=== PATIENT | female | born 1990 | race Caucasian/White ===

== ENCOUNTER 2017-10-11 11:00 | Emergency (ER) | payer MEDICAID ==
[~2017-10-11] VITALS: Ht 172.7 cm; Wt 59.9 kg
[~2017-10-11 11:00] MED LIST: ACET-6134 PO; FERR-212 PO; PREN1SGL44 PO
[2017-10-11 11:11] VITALS: BP 95/66
--- NOTE | 2017-10-11 11:20 | NUR ---
Patient to bed 11.
[2017-10-11] MEDS ORDERED: NACL 0.9% 1,000 ML IV ONE (11:35)
[2017-10-11] MEDS ORDERED: ONDANSETRON 4 MG/2 ML VIAL IVP ONE (11:35)
--- NOTE | 2017-10-11 12:00 | NUR ---
27F BIB WITH C/O 8/10 LEE WITH SORE THROAT AND BODY ACHES; PT STS SHE IS 13 WKS ; LMP 06/27/17; ; PT DENIES ANY ABD CRAMPING OR VAG BLEEDING AT THIS TIME DENIES N/V/D; SKIN IS PINK/WARM/DRY; AAOX4 WITH EVEN AND STEADY GAIT; LUNGS CLEAR BL; HR EVEN AND REGULAR; PT DENIES ANY FEVER, CP, SOB, OR COUGH AT THIS TIME; PATIENT STATES PAIN OF 0/10 AT THIS TIME; VSS; PATIENT POSITIONED FOR COMFORT; HOB ELEVATED; BEDRAILS UP X2; BED DOWN. ER MD MADE AWARE OF PT STATUS.
[2017-10-11 12:27] LABS: HEMOGLOBIN 13.3 g/dL (12.0-16.0); MEAN CORPUSCULAR HEMOGLOBIN 30 pg (27-31); MEAN CORPUSCULAR HGB CONC 34 g/dL (33-37); MEAN CORPUSCULAR VOLUME 89 fL (80-94); PLATELET COUNT (AUTO) 140 K/uL (140-450); RED BLOOD CELL COUNT(AUTO) 4.38 MIL/uL (4.20-5.40); RED CELL DISTRIBUTION WIDTH 12.5 % (11.6-13.7); WHITE BLOOD COUNT (AUTO) 5.1 K/uL (4.8-10.8)
[2017-10-11 12:47] LABS: ALBUMIN 3.4 g/dL (3.4-5.0); ANION GAP 11.7 (8-16); CARBON DIOXIDE 27.3 mmol/L (21-32); CREATININE 0.7 mg/dL (0.6-1.3); LYMPHOCYTES % (MANUAL) 7 % (20-46); MONOCYTES % (MANUAL) 8 % (5-12); TOTAL BILIRUBIN 0.4 mg/dL (0.0-1.0)
[2017-10-11] MEDS ORDERED: POTASSIUM CHLORIDE 10 MEQ TABER PO ONE (13:00)
[2017-10-11] MEDS ORDERED: KETOROLAC 30 MG/ML VIAL IVP ONE (13:05)
[2017-10-11 13:44] VITALS: BP 100/65
== END 2017-10-11 13:44 | disposition home or self-care (01) ==
LOC: MED 11:00
DX: O21.0 Mild hyperemesis gravidarum (principal); E86.0 Dehydration; E87.6 Hypokalemia; J06.9 Acute upper respiratory infection, unspecified; Z3A.00 Weeks of gestation of pregnancy not specified; Z79.899 Other long term (current) drug therapy
CPT/HCPCS: 36415; 80053; 85025; 96361; 96374; 96375; 99284; J1885; J2405; J7030

== ENCOUNTER 2017-10-15 12:00 | Emergency (ER) | payer MEDICAID ==
[~2017-10-15] VITALS: Ht 170.2 cm; Wt 59.4 kg
[2017-10-15 12:04] VITALS: BP 100/65
--- NOTE | 2017-10-15 12:44 | NUR ---
PT TAKEN TO BED 11.
--- NOTE | 2017-10-15 13:03 | NUR ---
PATIENT PRESENTS TO ED WITH C/O BLISTERS TO LIPS AND MOUTH SINCE FRIDAY, SORE THROAT X4 DAYS;ORAL THRUSH NOTED;15 WEEKS LMP 06/27/17;DENIES ANY MEDICAL HX;PT STATES SHE'S BEEN VOMITTING; SKIN IS PINK/WARM/DRY; AAOX4 WITH EVEN AND STEADY GAIT; LUNGS CLEAR BL; HR EVEN AND REGULAR; PT DENIES ANY FEVER, CP, SOB, OR COUGH AT THIS TIME; PATIENT STATES PAIN OF 9/10 AT THIS TIME;PATIENT POSITIONED FOR COMFORT; HOB ELEVATED; BEDRAILS UP X2; BED DOWN. ER MD MADE AWARE OF PT STATUS.
[2017-10-15 13:31] VITALS: BP 115/73
--- NOTE | 2017-10-15 13:31 | NUR ---
Patient discharged with v/s stable. Written and verbal after care instructions given and explained. Patient alert, oriented and verbalized understanding of instructions. Ambulatory with steady gait. All questions addressed prior to discharge. ID band removed. Patient advised to follow up with PMD. Rx of NEOSPORIN given. Patient educated on indication of medication including possible reaction and side effects. Opportunity to ask questions provided and answered.
== END 2017-10-15 13:31 | disposition home or self-care (01) ==
LOC: MED 12:00
DX: T69.8XXA Other specified effects of reduced temperature, initial encounter (principal); Z79.899 Other long term (current) drug therapy; X58.XXXA Exposure to other specified factors, initial encounter; Y93.89 Activity, other specified; Y92.89 Other specified places as the place of occurrence of the external cause; Y99.8 Other external cause status
CPT/HCPCS: 81025; 99283

== ENCOUNTER 2018-01-30 16:10 | Observation (INO) | payer OTHER ==
[~2018-01-30] VITALS: Ht 167.6 cm; Wt 63.5 kg
[2018-01-30] MEDS ORDERED: BETAMETH ACET/BETAMETH NA PH 30 MG/5 ML VIAL IM ONE (16:53)
[2018-01-30] MEDS ORDERED: TERBUTALINE 1 MG/ML VIAL SUBQ SCH (16:55)
[2018-01-30] MEDS ORDERED: TERBUTALINE 1 MG/ML VIAL SUBQ ONE (16:55)
[2018-01-30 16:58] VITALS: BP 101/62
[2018-01-30] MEDS ORDERED: BETAMETH ACET/BETAMETH NA PH 30 MG/5 ML VIAL IM SCH (17:00)
[2018-01-30] MEDS ORDERED: AMPICILLIN 2,000 MG in NACL 0.9% 100 ML IV SCH (17:50)
[2018-01-30] MEDS ORDERED: AMPICILLIN 2,000 MG VIAL ONE (17:50)
--- NOTE | 2018-01-31 07:04 | NUR ---
PATIENT HAS BEEN SCREENED AND CATEGORIZED LOW NUTRITION RISK. PATIENT WILL BE SEEN WITHIN 7 DAYS OF ADMISSION. 02/05/18 ASHLEIGH SILVA MS, RDN
== END 2018-01-30 19:05 | disposition short-term general hospital (02) ==
LOC: MLD 16:10
PROVIDERS: ADMIT Obstetrics & Gynecology; ATTEND Obstetrics & Gynecology
DX: O62.9 Abnormality of forces of labor, unspecified (principal); O42.913 Preterm premature rupture of membranes, unspecified as to length of time between rupture and onset of labor, third trimester; Z3A.31 31 weeks gestation of pregnancy
CPT/HCPCS: 76805; 96365; 96372; G0378; J0290; J0702; J3105; Q0092

== ENCOUNTER 2019-04-01 08:46 | Emergency (ER) | payer OTHER ==
[~2019-04-01] VITALS: Ht 167.6 cm; Wt 59.4 kg
[~2019-04-01 08:46] MED LIST changes: -ACET-6134 PO; -FERR-212 PO
[2019-04-01 09:14] VITALS: BP 105/51
--- NOTE | 2019-04-01 09:14 | NUR ---
Pt taken to bed 1.
--- NOTE | 2019-04-01 09:44 | NUR ---
Pt BIB family member, with c/o 8/10, bilateral frontal lobe headache, characterized as being sharp x 1 day. Headache began at 3am last night and followed by n/v. Patient has vomited a few times since onset of LEE. +Photophobia. Denies photophobia. Denies vision changes. States LEE worsened by standing and moving around, relieved by resting and avoidance of light. Denies hx of migraines, but states she gets similar headaches monthly. ELE does not align with menstrual cycle. Pt has taken Motrin and Tylenol last night which has not provided relief. Denies stiff neck. Negative Brudinski. Bed locked & low, siderails up x1. ERMD to eval patient.
--- NOTE | 2019-04-01 09:48 | NUR ---
DR. SOUZA AT BEDSIDE TO EVAL PATIENT.
[2019-04-01] MEDS ORDERED: NACL 0.9% 1,000 ML IV ONE (09:49)
[2019-04-01] MEDS ORDERED: KETOROLAC 30 MG/ML VIAL IVP ONE (09:50)
[2019-04-01] MEDS ORDERED: diphenhydrAMINE 50 MG/ML VIAL IVP ONE (09:50)
[2019-04-01] MEDS ORDERED: METOCLOPRAMIDE 10 MG/2 ML INJ VIAL IVP ONE (09:50)
--- NOTE | 2019-04-01 11:20 | NUR ---
Patient discharged with v/s stable. Written and verbal after care instructions given and explained. Patient alert, oriented and verbalized understanding of instructions. Ambulatory with steady gait. All questions addressed prior to discharge. ID band removed. Patient advised to follow up with PMD. Rx of FIORICET AND REGLAN given. Patient educated on indication of medication including possible reaction and side effects. Opportunity to ask questions provided and answered.
[2019-04-01 11:25] VITALS: BP 107/61
--- NOTE | 2019-04-07 08:35 | NUR ---
Late entry. Confirmed with RN that 1000 ml 0.9 NS IV completed at 1100.
== END 2019-04-01 11:20 | disposition home or self-care (01) ==
LOC: MED 08:46
DX: R51 Headache (principal); R11.2 Nausea with vomiting, unspecified; Z90.49 Acquired absence of other specified parts of digestive tract; Z79.899 Other long term (current) drug therapy
CPT/HCPCS: 81002; 81025; 96361; 96374; 96375; 99283; J1200; J1885; J2765; J7030